=== PATIENT | male | born 1985 | race Caucasian/White ===

== ENCOUNTER 2024-02-25 18:33 | Emergency (ER) | payer MEDICAID ==
[~2024-02-25] VITALS: Ht 167.6 cm; Wt 113.4 kg
[2024-02-25 18:43] VITALS: BP_SYST 136; PULSE 98; RESP 16; TEMP 97; O2SAT 97
[2024-02-25] MEDS: IBUPROFEN 600 MG TABLET PO ONE (19:28)
[2024-02-25 19:32] VITALS: BP_SYST 136; PULSE 98; RESP 16; TEMP 97; O2SAT 97
== END 2024-02-25 19:32 ==
LOC: SED 18:33
DX: Z02.89 Encounter for other administrative examinations (principal)
CPT/HCPCS: 99283